=== PATIENT | female | born 1995 | race Caucasian/White ===

== ENCOUNTER 2021-10-05 08:39 | Inpatient (IN) | payer BC, SELFPAY ==
[~2021-10-05 08:39] MED LIST: Bupivacaine 0.25% HCL 30 ML VIAL ONE
[2021-10-05] MEDS ORDERED: NS w/ Oxytocin 30 units 500 ML ONE ×2 (08:53→20:34)
[2021-10-05] MEDS ORDERED: Butorphanol Tartrate 1 MG/ML VIAL SLOW IVP PRN (08:56)
[2021-10-05] MEDS ORDERED: Ondansetron PF 4 MG/2 ML Vial IVP PRN ×3 (08:56→20:01)
[2021-10-05] MEDS ORDERED: hydrALAZINE 20 MG/ML VIAL SLOW IVP PRN ×2 (08:56→20:01)
[2021-10-05] MEDS ORDERED: Ibuprofen 800 MG TAB PO PRN (08:56)
[2021-10-05] MEDS ORDERED: Acetaminophen 500 MG TAB PO PRN (08:56)
[2021-10-05] MEDS ORDERED: Lidocaine 1% (PF) 30 ML VIAL SC PRN (08:56)
[2021-10-05] MEDS ORDERED: Docusate 100 MG CAP PO PRN (08:56)
[2021-10-05] MEDS ORDERED: Promethazine HCl 25 MG/ML VIAL IM PRN ×2 (08:56→13:27)
[2021-10-05] MEDS ORDERED: Misoprostol 200 MCG TAB PR PRN (08:56)
[2021-10-05] MEDS ORDERED: HYDROcodone/Acetaminophen 5/325 mg Tablet PO PRN ×4 (08:56→20:01)
[2021-10-05] MEDS ORDERED: Diphenoxylate HCl/Atropine Tablet PO PRN ×2 (08:56)
[2021-10-05] MEDS ORDERED: NS w/ Oxytocin 30 units 500 ML IVPB SCH (09:00)
[2021-10-05] MEDS ORDERED: NS w/ Oxytocin 30 units 500 ML IV SCH ×3 (09:00→20:15)
[2021-10-05] MEDS ORDERED: Lactated Ringer's 1,000 ML IV SCH (09:00)
[2021-10-05 09:37] LABS: Hemoglobin 10.6 g/dL (12.0-15.5); Mean Corpuscular HGB CONC 32.1 g/dL (32.0-36.0); Mean Corpuscular Hemoglobin 29.4 pg (27.0-33.0); Mean Corpuscular Volume 91.4 fl (81.6-98.3); Mean Platelet Volume 10.4 fl (7.4-10.4); Platelet Count 306 10x3/uL (150-450); Red Blood Cell (RBC) Count 3.61 10x6/uL (3.90-5.03); White Blood Cell (WBC) Count 9.5 10x3/uL (3.5-10.5)
[2021-10-05 09:52] VITALS: BMI 31.1
[2021-10-05 10:15] LABS: HIV (1/2) Antibody/Antigen Non-Reactive (NonReactive); HIV 1/2 INDEX 0.06 S/CO (<1.00); Hep B Surf Ag Non-Reactive S/CO (NonReactive); Syphilis Antibody Nonreactive (Nonreactive); Syphilis Antibody Index 0.06 S/CO (<1.00 Non-Reactive)
[2021-10-05 10:27] LABS: HBSAg Index 0.16 S/CO (0-0.99)
[2021-10-05] MEDS ORDERED: Fentanyl 2 mcg/Bup 0.1% Cadd 100 ML ONE ×2 (10:30→17:51)
[2021-10-05] MEDS ORDERED: Lactated Ringer's 500 ML IV PRN (13:27)
[2021-10-05] MEDS ORDERED: diphenhydrAMINE 50 MG/ML VIAL IVP PRN (13:27)
[2021-10-05] MEDS ORDERED: Acetaminophen 325 MG TAB PO PRN (13:27)
[2021-10-05] MEDS ORDERED: Naloxone HCl 0.4 mg/ml Vial IVP PRN ×2 (13:27)
[2021-10-05] MEDS ORDERED: Hydrocerin (Eucerin) Cream 120 gm Jar TOP PRN (13:27)
[2021-10-05] MEDS ORDERED: ePHEDrine Sulfate 50 MG/10 ML VIAL SLOW IVP PRN (13:27)
[2021-10-05] MEDS ORDERED: Communication Order-Pharmacy FS PRN (13:30)
[2021-10-05] MEDS ORDERED: Fentanyl 2 mcg/Bupivacaine 0.1% Cassette 100 ML EPIDURAL SCH (13:30)
[2021-10-05 19:15] LABS: SARS-CoV-2 NAA Rapid Test Not Detected (NotDetected)
[2021-10-05] MEDS ORDERED: Methylergonovine 0.2 MG/ML VIAL ONE (19:58)
[2021-10-05] MEDS ORDERED: Milk Of Magnesia 30 ML UDCUP PO PRN (20:01)
[2021-10-05] MEDS ORDERED: Preparation H Ointment 28 GM TUBE PR PRN (20:01)
[2021-10-05] MEDS ORDERED: Bisacodyl 10 MG SUPP PR PRN (20:01)
[2021-10-05] MEDS ORDERED: diphenhydrAMINE 25 MG CAP PO PRN (20:01)
[2021-10-05] MEDS ORDERED: Boostrix 0.5 ML (Tdap) VIAL IM ONE (20:01)
[2021-10-05] MEDS ORDERED: Benzocaine-Menthol 82.5 ML CAN TOP PRN (20:01)
[2021-10-05] MEDS ORDERED: Misoprostol 200 MCG TAB VAG PRN (20:01)
[2021-10-05] MEDS ORDERED: Lanolin Ointment 7 GM TUBE TOP PRN (20:01)
[2021-10-05] MEDS ORDERED: Zolpidem Tartrate 5 MG TAB PO PRN (20:01)
[2021-10-05] MEDS ORDERED: Witch Hazel-Glycerin 1 EACH JAR TOP PRN (20:02)
[2021-10-05] MEDS: Ibuprofen 800 MG TAB PO SCH (22:00)
[2021-10-06] MEDS: Docusate Calcium (SURFAK) 240 MG CAP PO SCH ×2 (04:03→08:46)
[2021-10-06] MEDS: Ibuprofen 800 MG TAB PO SCH ×2 (04:05→13:30)
[2021-10-06 05:22] LABS: Hemoglobin 8.2 g/dL (12.0-15.5); Mean Corpuscular HGB CONC 32.5 g/dL (32.0-36.0); Mean Corpuscular Hemoglobin 29.4 pg (27.0-33.0); Mean Corpuscular Volume 90.3 fl (81.6-98.3); Mean Platelet Volume 10.3 fl (7.4-10.4); Platelet Count 273 10x3/uL (150-450); RBC Distribution Width 12.9 % (11.5-14.5); Red Blood Cell (RBC) Count 2.79 10x6/uL (3.90-5.03); White Blood Cell (WBC) Count 17.5 10x3/uL (3.5-10.5)
[2021-10-06] MEDS: Ferrous Sulfate 325 MG TAB PO SCH ×2 (08:46→16:38)
[2021-10-06] MEDS: Prenatal Vitamin 1 TAB PO SCH (08:46)
[2021-10-06] MEDS ORDERED: Ondansetron ODT 4 MG TAB PO PRN (22:44)
[2021-10-07] MEDS: Ibuprofen 800 MG TAB PO SCH ×2 (05:52→05:53)
[2021-10-07] MEDS: Docusate Calcium (SURFAK) 240 MG CAP PO SCH ×2 (05:52→08:12)
[2021-10-07 07:49] VITALS: BP 119/70; TEMP 98.6
[2021-10-07] MEDS: Ferrous Sulfate 325 MG TAB PO SCH (08:12)
[2021-10-07] MEDS: Prenatal Vitamin 1 TAB PO SCH (08:12)
== END 2021-10-07 10:05 | disposition home or self-care (01) | DRG 806 ==
LOC: CSHLD 08:39 → CSHPP 10-06 00:32
PROVIDERS: ADMIT Obstetrics & Gynecology; ATTEND Obstetrics & Gynecology
PROC: 10D07Z6 Extraction of Products of Conception, Vacuum, Via Natural or Artificial Opening (ICD-10-PCS; principal; 2021-10-05)
PROC: 0KQM0ZZ Repair Perineum Muscle, Open Approach (ICD-10-PCS; 2021-10-05)
DX: O36.5930 Maternal care for other known or suspected poor fetal growth, third trimester, not applicable or unspecified (principal); O72.1 Other immediate postpartum hemorrhage; Z37.0 Single live birth; O99.02 Anemia complicating childbirth; Z3A.38 38 weeks gestation of pregnancy; Z20.822 Contact with and (suspected) exposure to COVID-19; K21.9 Gastro-esophageal reflux disease without esophagitis; F41.9 Anxiety disorder, unspecified; F32.A Depression, unspecified; O99.284 Endocrine, nutritional and metabolic diseases complicating childbirth; E28.2 Polycystic ovarian syndrome; O99.344 Other mental disorders complicating childbirth; O99.62 Diseases of the digestive system complicating childbirth; O70.1 Second degree perineal laceration during delivery; D64.9 Anemia, unspecified
CPT/HCPCS: 36415; 51702; 85027; 86780; 86850; 86900; 86901; 87340; 87389; J2405; J2590; J7120; Q0162; U0002

== ENCOUNTER 2022-07-12 12:50 | Outpatient (CLI) | payer BC | END 2022-07-12 12:51 | disposition home or self-care (01) | LOC: CSHLAB 12:50 | PROVIDERS: ATTEND Family Medicine | DX: Z20.822 Contact with and (suspected) exposure to COVID-19 (principal) | CPT/HCPCS: 87811 ==

== ENCOUNTER 2022-07-15 12:20 | Outpatient (CLI) | payer BC | END 2022-07-15 12:21 | disposition home or self-care (01) | LOC: CSHCP 12:20 | PROVIDERS: ATTEND Family Medicine | DX: D86.9 Sarcoidosis, unspecified (principal) | CPT/HCPCS: 94010; 94726; 94729; 94760 ==